=== PATIENT | male | born 1965 | race Asian ===

== ENCOUNTER 2020-04-06 07:19 | Emergency (ER) | payer OTHER ==
[2020-04-06 07:32] VITALS: BP 163/94; PULSE 94; TEMP 98.4; BMI 28.6
[2020-04-06] MEDS ORDERED: ACETAMINOPHEN 1000 MG/100 ML VIAL (NON FORMULARY) IVPB ONE (08:44)
[2020-04-06] MEDS ORDERED: SODIUM CHLORIDE 1,000 ML IV STA (08:44)
[2020-04-06 10:12] LABS: BASO % 0.5 % (0-2.0); EOS % 1.6 % (0-4.5); HEMATOCRIT 43.5 % (35.4-49); HEMOGLOBIN 14.5 GM/dL (11.7-16.9); LYMPH % 21.3 % (8-40); MCH 28.3 pg (25.7-33.7); MCHC 33.5 g/dl (32.0-35.9); MEAN CELL VOLUME 84.4 fl (80-96); MEAN PLT VOLUME 9.2 fl (7.5-11.1); MONO % 7.7 % (3.8-10.2); NEUT % 68.9 % (42.8-82.8); PLATELET COUNT 257 K/MM3 (134-434); RBC 5.15 M/mm3 (4.00-5.60); WHITE BLOOD COUNT 8.5 K/mm3 (4.0-10.0)
[2020-04-06 10:31] LABS: POTASSIUM 3.7 mmol/L (3.5-5.1)
[2020-04-06 10:34] LABS: BLOOD UREA NITROGEN 5.7 mg/dL (7-18); CALCIUM 9.2 mg/dL (8.5-10.1)
[2020-04-06 10:37] LABS: CREATININE 0.7 mg/dL (0.55-1.3)
[2020-04-06 10:39] LABS: TOT PROT 8.6 g/dl (6.4-8.2)
[2020-04-06 11:27] LABS: PH,URINE >= 9.0 (5.0-8.0); URINE APPEARANCE CLEAR; URINE BILIRUBIN NEGATIVE (NEGATIVE); URINE COLOR YELLOW; URINE GLUCOSE (UA) NEGATIVE (NEGATIVE); URINE KETONE NEGATIVE (NEGATIVE); URINE LEUK ESTERASE NEGATIVE (NEGATIVE); URINE NITRITE NEGATIVE (NEGATIVE); URINE PROTEIN NEGATIVE (NEGATIVE); URINE UROBILINOGEN 0.2 mg/dL (0.2-1.0)
[2020-04-06] MEDS ORDERED: KETOROLAC TROMETHAMINE 15 MG/ML VIAL IVPUSH ONE (11:34)
[2020-04-06] MEDS ORDERED: KETOROLAC TROMETHAMINE 15 MG/ML VIAL ONE (12:12)
== END 2020-04-06 12:10 | disposition home or self-care (01) ==
LOC: JER 07:19
PROC: 3E0333Z Introduction of Anti-inflammatory into Peripheral Vein, Percutaneous Approach (ICD-10-PCS; principal; 2020-04-06)
PROC: 3E0333Z Introduction of Anti-inflammatory into Peripheral Vein, Percutaneous Approach (ICD-10-PCS; 2020-04-06)
PROC: 3E0337Z Introduction of Electrolytic and Water Balance Substance into Peripheral Vein, Percutaneous Approach (ICD-10-PCS; 2020-04-06)
DX: R10.9 Unspecified abdominal pain (principal)
CPT/HCPCS: 36415; 74176-TC; 80053; 81003; 85025; 87086; 99284-25; J0131

== ENCOUNTER 2021-02-11 12:12 | Emergency (ER) | payer OTHER ==
[2021-02-11 12:59] VITALS: BP 151/72; PULSE 82; TEMP 98.2; BMI 29.0
[2021-02-11 14:16] LABS: BASO % 0.6 % (0-2.0); EOS % 2.5 % (0-4.5); HEMATOCRIT 45.8 % (35.4-49); HEMOGLOBIN 14.9 GM/dL (11.7-16.9); LYMPH % 32.2 % (8-40); MCH 28.6 pg (25.7-33.7); MCHC 32.5 g/dl (32.0-35.9); MEAN CELL VOLUME 88.2 fl (80-96); MEAN PLT VOLUME 9.6 fl (7.5-11.1); MONO % 10.4 % (3.8-10.2); NEUT % 54.3 % (42.8-82.8); PLATELET COUNT 211 10^3/uL (134-434); WHITE BLOOD COUNT 5.7 K/mm3 (4.0-10.0)
[2021-02-11 14:35] LABS: CHLORIDE 107 mmol/L (98-107); SODIUM 143 mmol/L (136-145)
[2021-02-11 14:37] LABS: ALBUMIN 3.8 g/dl (3.4-5.0); ANION GAP 9 MMOL/L (8-16); BLOOD UREA NITROGEN 8.3 mg/dL (7-18); CALCIUM 9.5 mg/dL (8.5-10.1); CO2 28 mmol/L (21-32); GLUCOSE,RANDOM 108 mg/dL (74-106)
[2021-02-11 14:40] LABS: SGOT/AST 24 U/L (15-37); SGPT/ALT 38 U/L (13-61)
[2021-02-11 14:42] LABS: BILIRUBIN,TOTAL 0.3 mg/dL (0.2-1); CREATININE 0.7 mg/dL (0.55-1.3); TOT PROT 8.5 g/dl (6.4-8.2)
[2021-02-11 14:43] LABS: ALK PHOS 68 U/L (45-117)
[2021-02-11 16:52] LABS: CALCIUM 8.9 mg/dL (8.5-10.1)
[2021-02-11 16:53] LABS: BLOOD UREA NITROGEN 9.4 mg/dL (7-18); CO2 25 mmol/L (21-32); GLUCOSE,RANDOM 104 mg/dL (74-106)
[2021-02-11 16:56] LABS: CREATININE 0.6 mg/dL (0.55-1.3)
[2021-02-11 17:16] LABS: ANION GAP 10 MMOL/L (8-16); CHLORIDE 109 mmol/L (98-107); SODIUM 144 mmol/L (136-145)
== END 2021-02-11 17:35 | disposition home or self-care (01) ==
LOC: JER 12:12
DX: R06.02 Shortness of breath (principal)
CPT/HCPCS: 36415; 71046-TC-FY; 80048; 80053; 82550; 84484; 85025; 93005; 93010; 99285-25

== ENCOUNTER 2024-04-24 12:35 | Emergency (ER) | payer OTHER ==
[2024-04-24 12:55] VITALS: BP 156/76; PULSE 67; RESP 16; TEMP 98; BMI 28.2
[2024-04-24] MEDS ORDERED: KETOROLAC TROMETHAMINE 30 MG/1 ML VIAL ONE (13:18)
[2024-04-24 13:29] LABS: URINE APPEARANCE CLEAR; URINE BILIRUBIN NEGATIVE (NEGATIVE); URINE COLOR YELLOW; URINE GLUCOSE (UA) NEGATIVE (NEGATIVE); URINE KETONE NEGATIVE (NEGATIVE); URINE LEUK ESTERASE NEGATIVE (NEGATIVE); URINE NITRITE NEGATIVE (NEGATIVE); URINE PROTEIN NEGATIVE (NEGATIVE); URINE UROBILINOGEN 0.2 mg/dL (0.2-1.0)
[2024-04-24] MEDS: SODIUM CHLORIDE 0.9% 500 ML INFUS.BAG IV ONE (13:35)
[2024-04-24] MEDS: KETOROLAC TROMETHAMINE 30 MG/1 ML VIAL IVPUSH ONE (13:35)
[2024-04-24 13:50] LABS: BASO % 0.7 % (0-2.0); EOS % 5.2 % (0-4.5); HEMATOCRIT 40.3 % (35.4-49); HEMOGLOBIN 13.5 GM/dL (11.7-16.9); LYMPH % 35.8 % (8-40); MCH 28.9 pg (25.7-33.7); MCHC 33.5 g/dl (32.0-35.9); MEAN CELL VOLUME 86.3 fl (80-96); MEAN PLT VOLUME 9.2 fl (7.5-11.1); MONO % 10.4 % (3.8-10.2); NEUT % 47.9 % (42.8-82.8); PLATELET COUNT 179 10^3/uL (134-434); RBC 4.67 M/mm3 (4.00-5.60); RDW 14.8 % (11.9-15.9); WHITE BLOOD COUNT 4.5 K/mm3 (4.0-10.0)
[2024-04-24 14:07] LABS: POTASSIUM 3.6 mmol/L (3.5-5.1)
[2024-04-24 14:09] LABS: CALCIUM 9.1 mg/dL (8.5-10.1)
[2024-04-24 14:10] LABS: ALBUMIN 3.8 g/dl (3.4-5.0); BLOOD UREA NITROGEN 9.7 mg/dL (7-18)
[2024-04-24 14:13] LABS: CREATININE 0.9 mg/dL (0.55-1.3)
[2024-04-24 14:14] LABS: BILIRUBIN,TOTAL 0.4 mg/dL (0.2-1)
[2024-04-24 14:15] LABS: TOT PROT 7.5 g/dl (6.4-8.2)
== END 2024-04-24 16:07 | disposition home or self-care (01) ==
LOC: JER 12:35
PROC: 3E0333Z Introduction of Anti-inflammatory into Peripheral Vein, Percutaneous Approach (ICD-10-PCS; principal; 2024-04-24)
DX: N20.0 Calculus of kidney (principal)
CPT/HCPCS: 36415; 74176-TC; 80053; 81003; 85025; 87086; 99285-25